=== PATIENT | male | born 1980 | race Caucasian/White ===

== ENCOUNTER 2019-12-01 15:00 | Emergency (ER) | payer BC, OTHER ==
[~2019-12-01] VITALS: Ht 188 cm; Wt 113.5 kg
--- NOTE | 2019-12-01 16:01 | NUR ---
FROM LOBBY TO ROOM AT THIS TIME
--- NOTE | 2019-12-01 16:08 | NUR ---
FIRST CONTACT WITH PT. PT STATES "BP 191/122 AT WORK C/O OF SLIGHT SOB (OFF B/P MEDS X 2 MONTHS)" PT DENIES ANY OTHER SYMPTOMS. PT'S AOX4. RESPS EVEN AND UNLABORED. BP/SPO2 MONITORS IN PLACE. CALL LIGHT WITHIN REACH.
--- NOTE | 2019-12-01 16:10 | NUR ---
REPORT GIVEN TO DANIEL GUTIERREZ.
[2019-12-01 16:51] VITALS: BP 148/90
[2019-12-01 16:52] LABS: BASOPHILS # (AUTO) 0.09 x10^3/uL (0-0.1); BASOPHILS % (AUTO) 1 % (0-1); EOSINOPHILS # (AUTO) 0.15 x10^3/uL (0-0.4); EOSINOPHILS % (AUTO) 3 % (1-7); LYMPHOCYTES # (AUTO) 1.48 x10^3/uL (1-3.4); LYMPHOCYTES % (AUTO) 24 % (22-44); MD NO; MEAN CORPUSCULAR HEMOGLOBIN 22.7 pg (27.5-34.5); MEAN CORPUSCULAR HGB CONC 31.4 g/dL (33.2-36.2); MEAN CORPUSCULAR VOLUME 72.3 fL (81-97); MEAN PLATELET VOLUME 8.3 fL (7.4-10.4); MONOCYTES # (AUTO) 0.65 x10^3/uL (0.2-0.8); MONOCYTES % (AUTO) 10 % (2-9); NEUTROPHILS # (AUTO) 3.93 x10^3/uL (1.8-6.8); NEUTROPHILS % (AUTO) 62 % (42-75); PLATELET COUNT 397 x10^3/uL (130-400); RED BLOOD COUNT 6.32 x10^6/uL (4.38-5.82); RED CELL DISTRIBUTION WIDTH 16.4 % (9.4-14.8)
[2019-12-01 16:59] LABS: ALBUMIN 3.8 g/dL (3.4-5.0); ANION GAP 4 mmol/L (5-15); CALCIUM 8.9 mg/dL (8.5-10.1); CHLORIDE 108 mmol/L (98-107); CREATININE 1.33 mg/dL (0.7-1.3)
== END 2019-12-01 17:58 | disposition home or self-care (01) ==
LOC: ED 17:45
DX: I10 Essential (primary) hypertension (principal); R00.0 Tachycardia, unspecified; K21.9 Gastro-esophageal reflux disease without esophagitis
CPT/HCPCS: 36415; 71045; 80048; 82040; 85025; 93005; 99285